=== PATIENT | male | born 1950 | race Caucasian/White ===

== ENCOUNTER 2024-04-23 09:01 | Day surgery (SDC) | payer OTHER, SELFPAY ==
[2024-04-19 13:06] VITALS: BMI 39.9
[2024-04-19 13:29] LABS: % Basophils 0.8 % (0-2); % Eosinophils 2.2 % (0-6); % Immature Granulocytes 0.4 % (0-0.5); % Lymphocytes 25.2 % (20.5-51.1); % Monocytes 7.5 % (1.7-9.3); % Neutrophils 63.9 % (42.2-75.2); Absolute Basophils 0.1 10^3/uL (0-0.2); Absolute Eosinophils 0.2 10^3/uL (0-0.7); Absolute Lymphocytes 1.9 10^3/uL (1.2-3.4); Absolute Monocytes 0.6 10^3/uL (0.1-0.6); Absolute Neutrophils 4.9 10^3/uL (1.4-6.5); Hematocrit 48.7 % (39.0-52.0); Hemoglobin 17.1 g/dL (13.0-18.0); Mean Corp Hgb Conc. 35.1 g/dL (33.0-37.0); Mean Corpuscular Hgb 30.4 pg (27.0-31.0); Mean Corpuscular Volume 86.5 fL (80.0-94.0); Mean Platelet Volume 10.7 fL (7.4-10.4); Nucleated Red Blood Cells % 0 % (-); Platelet Count 190 10^3/uL (130-400); Red Blood Cell Count 5.63 10^6/uL (4.70-6.10); Red Cell Dist. Width 12.7 % (11.5-14.5); White Blood Cell Count 7.6 10^3/uL (4.8-10.8)
[2024-04-19 13:53] LABS: ALT (SGPT) 47 U/L (0-50); AST (SGOT) 31 U/L (17-59); Albumin 5.2 g/dl (3.5-5.0); Alkaline Phosphatase 55 U/L (38-126); Blood Urea Nitrogen 20 mg/dl (9-20); Calcium 10.4 mg/dl (8.4-10.2); Carbon Dioxide 23 mmol/L (22-30); Chloride 104 mmol/L (98-107); Estimated Creatinine Clearance 94 ml/min; Glucose 110 mg/dl (70-99); Potassium 4.5 mmol/L (3.5-5.1); Sodium 143 mmol/L (135-145); Total Bilirubin 1.1 mg/dl (0.2-1.3); Total Protein 7.8 g/dl (6.3-8.2); eGFR > 60.00
[2024-04-19 14:13] LABS: NT-proBNP 283 pg/ml; Troponin I < 0.012 ng/ml
[2024-04-23] VITALS (14 sets, daily range): BP systolic 117–169; BP diastolic 72–133; BMI 39.9
[2024-04-23 09:56] LABS: Glucose - Point of Care 143 mg/dl (70-99)
--- NOTE | 2024-04-23 11:09 | ITS.CL.CATH ---
[facility] - Catheterization
Cardiac Catheterization
Procedure Report:
CARDIAC CATHETERIZATION REPORT
Date of Procedure: 04/23/2024
Referring: Kenneth Mclean MD
Indication: Abnormal stress test, mild exertional dyspnea and severe coronary calcification on CT scan with diabetes mellitus
�
HEMODYNAMIC DATA
AO: 116/62
LV: 116/17
�
LEFT VENTRICULOGRAPHY: Moderate inferior hypokinesis with EF 52%
�
CORONARY ANGIOGRAPHY
Dominance: Right
Left Main: Mild ostial tapering without pressure dampening
LAD: Focal 80% proximal LAD stenosis with 50% mid LAD stenosis and otherwise mild luminal irregularities in the LAD proper. D1 is a very large bifurcating vessel. There is 50% ostial stenosis in the larger daughter branch.
Circumflex: The circumflex proper has mild luminal irregularities. OM1 is a very small caliber diffusely diseased vessel which is occluded in the midportion. OM 2 is small and is occluded in the midportion. OM 3 is a medium sized vessel with mild
luminal disease. The circumflex terminates with a small left posterolateral branch
RCA: There is 80% proximal RCA stenosis with a sizable irregular saccular aneurysm just distal to the lesion.. There is 60% RCA stenosis just distal to the location of the aneurysm. The mid RCA is mildly ectatic. There is 80% stenosis distal RCA
just proximal to the takeoff of the RPDA which has diffuse mild disease. The first right posterolateral branch is proximally occluded. The second right posterolateral branch is medium in size with diffuse mild luminal disease. The third and
terminal RPL is a bifurcating vessel with severe disease in both daughter branches
�
Closure Device: None-the procedure was performed via the right radial artery. The Bennett's test was normal prior to the procedure.
�
Radiation (mGy): 681
DAP (cm2.Gy): 56.6
Fluoroscopy time: 3.8 minutes
�
CONCLUSIONS
1:�Inferior hypokinesis with EF 52%
2:�Severe triple-vessel CAD as described
3. Recommend consultation for elective CABG to include grafting of the LAD, large daughter branch of D1, RPDA and if possible RPL.
4. We will give sublingual nitroglycerin and advise the patient to restrict activities until surgical consultation/ revascularization has been accomplished
�
�
Copy to: Kenneth Mclean MD, Twan Franks MD
�
Vickey Cortés MD, [facility]
[2024-04-23] MEDS: LOPRESSOR 25 MG PO (11:43)
== END 2024-04-23 14:00 | disposition home or self-care (01) ==
LOC: CATH 09:01
PROVIDERS: Physician Assistant Medical; ATTENDING PHYSICIAN Internal Medicine Cardiovascular Disease; FAMILY PHYSICIAN Internal Medicine; OTHER PHYSICIAN Internal Medicine Cardiovascular Disease
DX: I25.10 Atherosclerotic heart disease of native coronary artery without angina pectoris (principal); R94.39 Abnormal result of other cardiovascular function study; R06.09 Other forms of dyspnea; I10 Essential (primary) hypertension; E78.5 Hyperlipidemia, unspecified; E11.9 Type 2 diabetes mellitus without complications; E66.9 Obesity, unspecified; Z68.39 Body mass index [BMI] 39.0-39.9, adult; F17.210 Nicotine dependence, cigarettes, uncomplicated; Z82.49 Family history of ischemic heart disease and other diseases of the circulatory system; Z79.82 Long term (current) use of aspirin; Z79.84 Long term (current) use of oral hypoglycemic drugs; Z79.85 Long-term (current) use of injectable non-insulin antidiabetic drugs
CPT/HCPCS: 36415; 80053; 82962; 83880; 84484; 85025; 93005; 93458; C1894; Q9967